=== PATIENT | female | born 1990 | race Caucasian/White ===

== ENCOUNTER 2018-11-03 22:50 | Inpatient (IN) ==
[2018-11-04] MEDS ORDERED: Bisacodyl 10 MG Supp RECTAL PRN (04:40)
[2018-11-04] MEDS ORDERED: Acetaminophen 325 MG Tablet PO PRN (04:40)
[2018-11-04] MEDS ORDERED: Senna/Docusate Sodium 8.6/50 MG Tablet PO SCH (09:00)
--- NOTE | 2018-11-04 12:56 | P.HPIM ---
History of Present Illness Primary Care Physician: UNKNOWN Chief Complaint: Cough History of Present Illness: 28-year-old white female with history of asthma presents to the emergency room with a one-week history of a productive cough with greenish sputum. She also complains of low-grade fever intermittently during the past week. Over the past 24 hours she developed some nausea and nonbilious vomiting with diarrhea which has now subsided. She is currently tolerating p.o. with no further diarrhea at this time. She denies any active shortness of breath or wheezing. She reports when she coughs there is intermittent pleuritic chest pain. She denies a history of tobacco use. Diagnosis (1) Sepsis: (2) Community acquired pneumonia: Review of Systems Constitutional: Reports as per HPI, Reports chills, Reports fever(s) and Denies headache(s) Eyes: Denies blurry vision, Denies change in vision and Denies eye pain Ears, Nose, Mouth, and Throat: Denies abnormal hearing, Denies headache(s), Denies mouth pain, Denies nasal congestion, Denies neck pain and Denies sore throat Cardiovascular: Denies chest pain, Denies pedal edema, Denies palpitations and Denies dyspnea Respiratory: Reports change in phlegm color, Reports cough and Denies dyspnea Gastrointestinal: Denies abdominal pain, Denies constipation, Reports loose stools, Reports nausea and Reports vomiting Musculoskeletal: Denies back pain, Denies myalgias, Denies arthralgias, Denies neck pain and Denies numbness Skin/Breast: Denies new lesions and Denies rash Neurologic: Denies abnormal hearing, Denies headache(s), Denies focal weakness, Denies memory loss and Denies numbness Psychiatric: Denies anxiety, Denies depression and Denies memory loss Endocrine: Denies cold intolerance, Denies heat intolerance and Denies palpitations Hematologic/Lymphatic: Denies easy bleeding and Denies easy bruising [facility] Medical History Medical History Asthma (Chronic) Surgical History Surgical History Hx of breast surgery (Chronic) Hx of tonsillectomy (Chronic) Social History Social History Substance History: No History of Abuse Second Hand Smoke Exposure: No Smoking Status: Never smoker How Often Do You Have a Drink Containing Alcohol: Monthly or less Immunization History Tetanus Immunization: >5 Years Hx Influenza Vaccine This Season: No Medications and Allergies Allergies Allergy/AdvReac Type Severity Reaction Status Date / Time No Known Allergies Allergy Verified 11/03/18 23:26 Home Medications Medication Instructions Recorded Confirmed Type No Known Home Medications 08/28/18 11/03/18 History Active Medications: Active Medications Acetaminophen (Tylenol) 650 mg PO Q4H PRN PRN Reason: Temp > 100.4 Al Hydroxide/Mg Hydroxide (Milk Of Magnesia Liq) 30 ml PO Q12H PRN PRN Reason: Mild Constipation Albuterol (Duoneb Neb (Prn)) 1 ampul NEB Q4HR NEB PRN PRN Reason: SHORTNESS OF BREATH/WHEEZING Azithromycin (Zithromax) 500 mg PO Q24H ROXANN Bisacodyl (Dulcolax Supp) 10 mg RECTAL DAILY PRN PRN Reason: SEVERE CONSITIPATION Ceftriaxone Sodium 1,000 mg/ (Sodium Chloride) 100 mls @ 200 mls/hr IV.SIG Q24H ROXANN Sodium Chloride (Ns Inj) 1,000 mls @ 100 mls/hr IV.CONT .Q10H ROXANN Lactulose (Lactulose Liq) 30 ml PO DAILY PRN PRN Reason: SEVERE CONSITIPATION Ondansetron HCl (Zofran Inj) 4 mg IV.PUSH Q6H PRN PRN Reason: NAUSEA OR VOMITING Senna/Docusate Sodium (Bailey-Colace) 1 tab PO BID ROXANN Sennosides (Senokot) 17.2 mg PO Q12H PRN PRN Reason: Moderate Constipation Sodium Chloride (Ns Flush) 2 ml IV.FLUSH BID ROXANN Sodium Chloride (Ns Flush) 2 ml IV.FLUSH PRN PRN PRN Reason: FLUSH AFTER USING IV ACCESS Physical Exam Vital signs: Last Vital Signs Temp 98.0 F 11/04/18 11:10 Pulse 111 H 11/04/18 11:10 Resp 20 11/04/18 11:10 BP 120/67 11/04/18 11:10 Pulse Ox 95 11/04/18 11:10 Intake & Output 11/02/18 11/03/18 11/04/18 11/05/18 06:59 06:59 06:59 06:59 Weight 93.1 kg Narrative: GENERAL: Well-nourished well-developed white female no acute distress SKIN: Warm and dry. HEAD: Atraumatic. Normocephalic. EYES: Pupils equal and round. No scleral icterus. No injection or drainage. ENT: No nasal bleeding or discharge. Mucous membranes pink and moist. NECK: Trachea midline. No JVD. CARDIOVASCULAR: Regular rate and rhythm. RESPIRATORY: Expiratory wheezes and few crackles in the bilateral bases, GASTROINTESTINAL: Abdomen soft, non-tender, nondistended. Normoactive bowel sounds. MUSCULOSKELETAL: Extremities without clubbing, cyanosis, or edema. No obvious deformities. NEUROLOGICAL: Awake and alert. No obvious cranial nerve deficits. Motor grossly within normal limits. Five out of 5 muscle strength in the arms and legs. Normal speech. PSYCHIATRIC: Appropriate mood and affect; insight and judgment normal. Results Labs CBC & Chem 7: 11/05/18 05:36 11/05/18 05:36 Capedai VTE Risk Assessment Capeda VTE Risk Assessment: No/Low Risk (score <= 1) Caprini Risk Assessment Model: Point Value = 1 Point Value = 2 Point Value = 3 Point Value = 5 Age 41-60 Minor surgery BMI > 25 kg/m2 Swollen legs Varicose veins or History of unexplained or recurrent spontaneous Oral contraceptives or hormone replacement Sepsis (< 1 month) Serious lung disease, including pneumonia (< 1 month) Abnormal pulmonary function Acute myocardial infarction Congestive heart failure (< 1 month) History of inflammatory bowel disease Medical patient at bed rest Age 61-74 Arthroscopic surgery Major open surgery (> 45 min) Laparoscopic surgery (> 45 min) Malignancy Confined to bed (> 72 hours) Immobilizing plaster cast Central venous access Age >= 75 History of VTE Family history of VTE Factor V Leiden Prothrombin [id number] Lupus anticoagulant Anticardiolipin antibodies Elevated serum homocysteine Heparin-induced thrombocytopenia Other congenital or acquired thrombophilia Stroke (< 1 month) Elective arthroplasty Hip, pelvis, or leg fracture Acute spinal cord injury (< 1 month) Prophylaxis Regimen: Total Risk Factor Score Risk Level Prophylaxis Regimen 0-1 Low Early ambulation 2 Moderate Order ONE of the following: *Sequential Compression Device (SCD) *Heparin 5000 units SQ BID 3-4 Higher Order ONE of the following medications: *Heparin 5000 units SQ TID *Enoxaparin/Lovenox 40 mg SQ daily (WT < 150 kg, CrCl > 30 mL/min) *Enoxaparin/Lovenox 30 mg SQ daily (WT < 150 kg, CrCl > 10-29 mL/min) *Enoxaparin/Lovenox 30 mg SQ BID (WT < 150 kg, CrCl > 30 mL/min) AND/OR *Sequential Compression Device (SCD) 5 or more Highest Order ONE of the following medications: *Heparin 5000 units SQ TID (Preferred with Epidurals) *Enoxaparin/Lovenox 40 mg SQ daily (WT < 150 kg, CrCl > 30 mL/min) *Enoxaparin/Lovenox 30 mg SQ daily (WT < 150 kg, CrCl > 10-29 mL/min) *Enoxaparin/Lovenox 30 mg SQ BID (WT < 150 kg, CrCl > 30 mL/min) AND *Sequential Compression Device (SCD) Assessment and Plan (1) Sepsis: Code(s): A41.9 - Sepsis, unspecified organism Status: Inactive (2) Community acquired pneumonia: Code(s): J18.9 - Pneumonia, unspecified organism Status: Inactive Plan 28-year-old white female presents with one week history of productive cough and 24-hour history of nausea vomiting diarrhea which has now resolved. Sepsis on presentation with tachycardia and tachypnea with source pneumonia Community acquired pneumonia with bilateral infiltratescontinue with IV Rocephin and Zithromax, supportive care. Asthma exacerbationcontinue with DuoNeb treatment, steroids x1. Wean off oxygen as tolerated. Walk fit test in the morning. Leukocytosisdue to infection History nausea vomiting diarrhea likely gastroenteritissymptoms has improved, Lactinex advance diet as tolerated. Acute kidney injury likely due to dehydrationIV fluid hydration and repeat BUN/ creatinine in the morning. DVT prophylaxisno mechanical or pharmaceutical VTE prophalaxis administered due to patient's low risk assessment of VTE. Encouraged ambulation. H&P: Quality VTE Deep Vein Thrombosis/Pulmonary Embolism Present on Admission: No _ (1) Community acquired pneumonia Qualifiers: Laterality: Lung location: (2) Sepsis Qualifiers: Sepsis type:
[2018-11-04] MEDS ORDERED: guaiFENesin/Dextromethorphan 200 MG/20 MG 10 ML UDC PO PRN (12:57)
[2018-11-04] MEDS ORDERED: MethylPREDNISolone Sod Succinate Inj 40 MG/ML Vial IV.PUSH ONE (13:15)
[2018-11-04] MEDS: Sod Chloride 0.9% Inj 1,000 ML IV.CONT SCH ×2 (13:55)
[2018-11-04] MEDS: Lactobacillus Acidophilus/L. Spores Tablet PO SCH (20:45)
[2018-11-04] MEDS ORDERED: Azithromycin 250 MG Tablet PO SCH (23:00)
[2018-11-05] MEDS: Sod Chloride 0.9% Inj 1,000 ML IV.CONT SCH (01:28)
[2018-11-05 06:49] LABS: Baso % (Auto) 0.4 % (0.0-2.0); Eos % (Auto) 0.1 % (0.0-4.0); Hematocrit 37.2 % (35.0-46.0); Hemoglobin 12.8 gm/dL (11.6-15.3); Lymph # (Auto) 1.5 th/mm3 (1.0-4.8); Lymph % (Auto) 20.1 % (9.0-44.0); Mean Corpuscular HGB Conc 34.5 % (32.0-36.0); Mean Corpuscular Hemoglobin 30.1 pg (27.0-34.0); Mean Corpuscular Volume 87.4 fL (80.0-100.0); Mono # (Auto) 0.6 th/mm3 (0.0-0.9); Mono % (Auto) 7.8 % (0.0-8.0); Neut # (Auto) 5.2 th/mm3 (1.8-7.7); Neut % (Auto) 71.6 % (16.0-70.0); Platelet Count 229 th/mm3 (150-450); Red Blood Count 4.26 mil/mm3 (4.00-5.30); Red Cell Distribution Width 13.4 % (11.6-17.2); White Blood Count 7.3 th/mm3 (4.0-11.0)
[2018-11-05 07:12] LABS: Anion Gap 10 meq/L (5-15); Blood Urea Nitrogen 9 mg/dL (7-18); Calcium 8.3 mg/dL (8.5-10.1); Carbon Dioxide 22.8 meq/L (21.0-32.0); Chloride 110 meq/L (98-107); Glomerular Filtration Rate Greater Than 89 mL/min (>89); Glucose,Random 89 mg/dL (74-106); Potassium 3.6 meq/L (3.5-5.1); Sodium 143 meq/L (136-145)
[2018-11-05] MEDS: Lactobacillus Acidophilus/L. Spores Tablet PO SCH (08:10)
[2018-11-05 08:22] VITALS: RESP 16
[2018-11-05 08:37] VITALS: TEMP 97.8
[2018-11-05 13:01] VITALS: PULSE 77
[2018-11-05 13:05] VITALS: BP 98/63; O2SAT 95
--- NOTE | 2018-11-05 14:22 | P.DS ---
DS: Providers Date of admission: 11/04/18 16:54 Primary care physician: UNKNOWN Anticipated date of discharge: 11/05/18 Brief History from admission: 28-year-old white female with history of asthma presents to the emergency room with a one-week history of a productive cough with greenish sputum. She also complains of low-grade fever intermittently during the past week. Over the past 24 hours she developed some nausea and nonbilious vomiting with diarrhea which has now subsided. She is currently tolerating p.o. with no further diarrhea at this time. She denies any active shortness of breath or wheezing. She reports when she coughs there is intermittent pleuritic chest pain. She denies a history of tobacco use. DS: Diagnosis Discharge Diagnosis (1) Sepsis: Status: Inactive Diagnosis: Principal (2) Community acquired pneumonia: Status: Inactive Diagnosis: Principal (3) Asthma exacerbation: Status: Acute Diagnosis: Principal DS: Summary Patient was seen on the day of discharge. She reports no further episodes of nausea, vomiting or diarrhea. She has mild, diffuse expiratory wheezing but states that this is her baseline. She requests to be discharged home. She states she knows how to care for herself at home and will return if she has any worsening signs and/or symptoms. Patient tolerating PO intake. ED precautions provided. Patient was advised to follow up with her PCP within 1 week post discharge. Her vital signs and lab work were reviewed at time of discharge and were unremarkable. Time Spent with Patient Total time spent providing and/or coordinating discharge services: Less than 30 minutes Status at Discharge Functional status at discharge: independent ambulation Overall status at discharge: patient is progressing back to baseline Quality: VTE Deep Vein Thrombosis/Pulmonary Embolism Present on Admission: No Exam Narrative Exam Narrative: GENERAL: no acute distress, well developed, well nourished SKIN: Warm and dry. HEAD: Normocephalic, atraumatic EYES: No scleral icterus. No injection or drainage. NECK: Supple, trachea midline. No JVD or lymphadenopathy. CARDIOVASCULAR: Regular rate and rhythm without murmurs, gallops, or rubs. RESPIRATORY: Breath sounds equal bilaterally. Mild diffuse expiratory wheezing bilaterally. No accessory muscle use. GASTROINTESTINAL: Abdomen soft, non-tender, nondistended. MUSCULOSKELETAL: No cyanosis, or edema. BACK: Nontender without obvious deformity. No CVA tenderness. Results Labs on day of discharge: Labs from last 24 hours 11/05/18 11/05/18 05:36 05:36 WBC 7.3 RBC 4.26 Hgb 12.8 D Hct 37.2 MCV 87.4 D MCH 30.1 MCHC 34.5 RDW 13.4 Plt Count 229 D MPV 9.0 Neut % (Auto) 71.6 H Lymph % (Auto) 20.1 [place] % (Auto) 7.8 Eos % (Auto) 0.1 Baso % (Auto) 0.4 Neut # (Auto) 5.2 Lymph # (Auto) 1.5 [place] # (Auto) 0.6 Eos # (Auto) 0.0 Baso # (Auto) 0.0 WBC Differential . Differential Comment Auto diff final Sodium 143 Potassium 3.6 Chloride 110 H Carbon Dioxide 22.8 Anion Gap 10 BUN 9 Creatinine 0.69 Estimated GFR Greater than 89 Random Glucose 89 Calcium 8.3 L D Discharge Plan Discharge Disposition Patient Disposition: 01 Discharge Home Discharge Condition Condition: Stable Discharge Order Discharge Orders: Discharge Order (Routine); Ordered 11/05/18 Ordered By: Juan Gray Discharge Details Anticipated Discharge Date: 11/05/18 Physicians Team Primary Care Provider: UNKNOWN, Attending Provider: Davy Mayorga Rxs /Orders / Referrals /Forms Prescriptions: New azithromycin 250 mg Tablet 250 mg PO Q24H Qty: 4 RF: 0 No Action No Known Home Medications RF: 0 Referrals: Family Practice Physician [Outside] - See Instructions (Follow up with your primary care provider of choice within 1 week. ) UNKNOWN, [Primary Care Provider] - See Instructions Discharge Instructions Patient Printed Instructions: Community Acquired Pneumonia (DC) Additional Instructions: Your Health Problems: Goals to Promote Your Health: * To prevent worsening of your condition * To maintain your health at the optimal level Directions to Meet Your Goals: * Take your medications as prescribed * Follow your dietary instruction * Follow activity as directed * Keep your appointments as scheduled * Take your immunizations and boosters as scheduled * If your symptoms worsen call your PCP * If no PCP go to Urgent Care or Emergency Room Smoking is dangerous to your health. Avoid second hand smoke. You may reach the 24-hour crisis hotline for domestic abuse at . Status ED Status: Admitted Observation Patient
== END 2018-11-05 15:01 | disposition home or self-care (01) | DRG 871 ==
LOC: PHEDDLT 11-04 05:35 → N05 11-04 05:35
PROVIDERS: ADMIT Internal Medicine; ATTEND Internal Medicine
DX: A41.9 Sepsis, unspecified organism; J45.901 Unspecified asthma with (acute) exacerbation; E86.0 Dehydration; K52.9 Noninfective gastroenteritis and colitis, unspecified; J18.9 Pneumonia, unspecified organism; N17.9 Acute kidney failure, unspecified
CPT/HCPCS: 80048; 85025; 94618; 94620; 94640; 94664; 94665; J0696; J2920; J7030